=== PATIENT | female | born 2000 | race African-American/Black ===

== ENCOUNTER 2018-04-20 21:19 | Emergency (ER) | payer OTHER, SELFPAY ==
[2018-04-20 22:05] LABS: #Lymphocytes 1.7 thou/uL (1.20-3.40); #Monocytes 0.4 thou/uL (0.11-0.59); #Neutrophils 3.3 thou/uL (1.40-6.50); %Basophils 0.6 % (0.0-1.0); %Eosinophils 0.2 % (0.0-10.0); %Lymphocytes 30.8 % (28.0-48.0); %Monocytes 7.1 % (0.0-4.0); %Neutrophils 61.3 % (31.0-61.0); Hemoglobin 12.1 g/dL (12.0-16.0); Mean Corpuscular HGB CONC 32.5 g/dL (32.0-36.0); Mean Corpuscular Hemoglobin 30.4 pg (25.0-35.0); Mean Corpuscular Volume 93.5 fL (78.0-98.0); Mean Platelet Volume 9.4 fL (7.4-10.4); Platelet Count 158 thou/uL (130-400); RBC Distribution Width 11.2 % (11.5-14.5); Red Blood Cell (RBC) Count 3.98 mill/uL (4.00-5.20); White Blood Cell (WBC) Count 5.4 thou/uL (4.8-10.8)
[2018-04-20] MEDS ORDERED: Acetaminophen 500 MG TAB ONE (22:23)
--- NOTE | 2018-04-20 22:23 | RAD ---
CHEST ONE VIEW 04/20/18 INDICATION: High risk complaint; chest pain. FINDINGS: The lungs are clear. The cardiomediastinal silhouette is within normal limits. No acute osseous abnor mality is evident. IMPRESSION: No acute cardiopulmonary abnormality. POS: [facility]
[2018-04-20 22:27] LABS: ALT (SGPT) 13 U/L (8-55); AST (SGOT) 15 U/L (5-30); Albumin 4.5 g/dL (3.5-5.0); Alkaline Phosphatase 74 U/L (40-150); Anion Gap 12 mmol/L (10-20); BUN (Urea Nitrogen) 18 mg/dL (8.4-21.0); Bilirubin, Total 0.4 mg/dL (0.2-1.2); CK (CPK) 218 U/L (29-168); Calc. Creatinine Clearance 0 mL/min (70-130); Calcium 9.4 mg/dL (7.8-10.44); Carbon Dioxide 21 mmol/L (22-29); Chloride 109 mmol/L (98-107); Estimated GFR-MDRD Greater than 90; Globulin 3.3 g/dL (2.4-3.5); Glucose 84 mg/dL (70-105); Lipase 20 U/L (8-78); Potassium 3.7 mmol/L (3.5-5.1); Protein, Total 7.8 g/dL (6.0-8.3); Sodium 138 mmol/L (136-145)
[2018-04-20 22:31] LABS: Troponin I Less than 0.010 ng/mL (< 0.028)
== END 2018-04-20 22:55 | disposition home or self-care (01) ==
LOC: ERS 21:19
DX: R07.89 Other chest pain (principal); R07.2 Precordial pain
CPT/HCPCS: 36415; 71045; 80053; 82550; 82553; 83690; 84484; 85025; 85379; 93005